=== PATIENT | female | born 1940 | race Two or more races ===

== ENCOUNTER 2018-08-04 22:03 | Emergency (ER) | payer MEDICARE, OTHER ==
[~2018-08-04] VITALS: Ht 152.4 cm; Wt 54.4 kg
[2018-08-04 22:14] VITALS: BP 163/72
== END 2018-08-05 02:03 | disposition left against medical advice (07) ==
LOC: ER 22:03
DX: M79.631 Pain in right forearm (principal); Z53.21 Procedure and treatment not carried out due to patient leaving prior to being seen by health care provider